=== PATIENT | female | born 1995 | race Caucasian/White ===

== ENCOUNTER → 2017-01-18 | Outpatient (CLI) | payer OTHER ==
--- NOTE | 2017-01-18 16:06 | KCIC ---
PROCEDURE Renal ultrasound. HISTORY Hydronephrosis. TECHNIQUE Renal ultrasound was performed. COMPARISON None. FINDINGS Right kidney measures at least 12.0 centimeters in length and the left 11.6 centimeters. There is no hydronephrosis or renal mass. Renal cortical echogenicity and thickness is within normal limits. Both urine jets are documented. Bladder is moderately distended and grossly unremarkable. Aorta is normal caliber. IVC is patent. IMPRESSION Normal renal ultrasound. Electronically signed by: Neil Lala MD (Jan 18, 2017 16:05:40)
== END | disposition home or self-care (01) ==
LOC: KCIC US 15:00
PROVIDERS: ATTEND Urology
DX: N13.2 Hydronephrosis with renal and ureteral calculous obstruction (principal)
CPT/HCPCS: 76770